=== PATIENT | male | born 1950 | race Asian ===

== ENCOUNTER 2017-03-15 05:56 | Inpatient (IN) | payer OTHER ==
[~2017-03-15] VITALS: Ht 162.6 cm; Wt 68.7 kg
[2017-03-15 06:24] VITALS: BP 130/94
--- NOTE | 2017-03-15 11:15 | NUR ---
PT ON THE FLOOR, ACCOMPANIED BY KATHARINE FROM OR. VS STABLE PT AWAKE A/O X4 ABLE TO MAKE NEEDS KNOWN. TEMPERATURE AND SENSATION EQUAL BILATERAL TO BOTH LOWER EXTREMITIES, PT ABLE TO WIGGLE TOES TO BOTH FEET. PT ORIENTED TO ROOM CALL LIGHT IN REACH, WILL CONTINUE TO MONITOR.
[2017-03-15 11:42] VITALS: BP 146/90
[2017-03-15 13:36] VITALS: BP 113/70
--- NOTE | 2017-03-15 13:42 | NUR ---
PT RESTING IN BED NO SIGNS OF DISTRESS ABLE TO MAKE NEEDS KNOWN. CALL LIGHT IN REACH WILL CONTINUE TO MONITOR.
--- NOTE | 2017-03-15 15:22 | NUR ---
P.T. NOTES ORDERED OHT APPLICATION; OHT APPLIED, EXPLAINED SAFE USE OF OHT, CALL QUARLES, PHONE, TABLE IN REACH; BED ALARM ON; RECEIVED P.T. EVAL ORDER FOR 03/16/17; FOLLOW UP TOMORROW. OHT SET UP
--- NOTE | 2017-03-15 16:27 | NUR ---
PT RESTIGN IN BED NO SIGNS OF DISTRESS, EVEN UNLABORED RESPIRATIONS. CALL LIGHT IN REACH.
[2017-03-15 17:05] VITALS: BP 94/51
--- NOTE | 2017-03-15 18:18 | NUR ---
PT EATING DINNER IN BED NO SIGNS OF DISTRESS CALL LIGHT IN REACH, PT DENIES PAIN AT THIS TIME. WILL REASSESS.
--- NOTE | 2017-03-15 20:04 | NUR ---
REC'D PT FROM [facility]. AAOX4. LAYING IN BED COMFORTABLY. DENIES PAIN. LUNG SOUNDS ARE CTA, NO SOB, BREATH SOUNDS ARE E/U. ABD IS SOFT AND ROUND, ACTIVE X4. L FIBERGLASS SPINT AND STOCKNETTE NOTED. BILATERAL LOWER EXTREMITIES ARE PALPABLE. NO R EDEMA NOTED. BED IN LOWEST POSITION. CALL LIGHT WITHIN REACH. WILL CONTINUE TO MONITOR.
--- NOTE | 2017-03-15 21:34 | NUR ---
PT COMPLAINED OF 8/10 ON THE PAIN SCALE. PT GIVEN PRN NORCO. WILL CONTINUE TO MONITOR.
[2017-03-15 21:37] VITALS: BP 100/62
--- NOTE | 2017-03-16 05:02 | NUR ---
PT SLEPT THROUGHOUT THE SHIFT. NO SOB, NO JOSE/D, NO SIGNS OF DISTRESS NOTED. DENIES PAIN AT THIS TIME. WILL CONTINUE TO MONITOR.
[2017-03-16 05:48] VITALS: BP 105/56
--- NOTE | 2017-03-16 07:20 | NUR ---
ENDORSE ALL CONTINUITY CARE TO [facility] GRAHAM.
--- NOTE | 2017-03-16 07:45 | NUR ---
PT AWAKE ALERT AD ORIENTED X4, ABLE TO MAKE NEEDS KNOWWN. PT DENIES CP OR SOB. LUNGS CTA, PT RESTING COMFORTBALE ON RA. BOWEL TONES ACTIVE. SENSATION AND COLORATION EQUAL TO BILATERAL EXTREMITIES. TRAPEEZE IN PLACE. URINAL AT BEDSIDE. CALL LIGHT IN REACH WILL CONTINUE TO MONITOR.
[2017-03-16 09:30] VITALS: BP 139/84
--- NOTE | 2017-03-16 10:25 | NUR ---
PT RSTING IN BED, NO SIGNS OF DISTRESS PAIN AT A TOERABLE LEVEL. WILL CONTINUE TO MONITOR.
--- NOTE | 2017-03-16 11:47 | NUR ---
P.T. NOTES Pt CLEARED PER CHARGE NURSE FOR PT EVAL.PATIENT LIVES AT HOME W/ AND REPORTS PRIOR IND WITH ADLs, STATES HE HAS BEEN USING CRUTCHES SINCE L ANKLE FX FEW MONTHS AGO, ALTHOUGH Pt ADMITS TO NON-COMPLIANCE AT TIMES. Pt HAD A FALL AT WORK WHICH LED TO L ANKLE FRACTURE. HE IS NOW POST OP L ANKLE ORIF ON 03/15/17 W/NWB PRECAUTIONS TO L LE. S: Pt PRESENTS AWAKE, ALERT AND AGREEABLE FOR PT EVAL. AT BEDSIDE. Pt REPORTS 3/10 L ANKLE PAIN, BUT WAS PREMEDICATED W/PAIN MEDS PER RN THIS MORNING. STATES THAT PAIN IS "NOT TOO BAD." COOPERATIVE W/CARE. O: PLEASE SEE EVAL FOR DETAILS. Pt MOSTLY REQUIRES SBA W/BED MOBILITY, MIN ASSIST W/TRANSFERS AND MIN A FOR GT W/CRUTCHES FOR 30 FT, CGA W/GT WITH FWW FOR 40 FT. Pt EDU ON CRUTCH TRAINING AND FWW BUT DEMO'S INCREASED STABILITY W/FWW USE. Pt AND EDU ON SAFETY, FALL PREVENTION, WELL Pt NWB L LE PRECAUTIONS W/GOOD UNDERSTANDING EXPRESSED. Pt SAFELY ASSISTED BTB WITH ALL LINES INTACT, CALL LIGHT AND TRAY IN REACH, HOB ELEVATED. OHT IN PLACE. COOPERATIVE AND APPRECIATIVE OF PT CARE. SUPPORTIVE SPOUSE. L LE ELEVATED. VS ASSESSMENT PRE PT:BP 124/69, HR 73BPM, SP02 96% ON RA. A: Pt TOLERATED PT WELL. FALL RISK D/T DECLINE IN FUNCTION AND LLE NWB PRECAUTIONS. DEMO'S GOOD COMPLIANCE W/L LE NWB PRECAUTIONS. LOB X 3 DURING GT W/CRUTCHES W/THERAPIST ASSIST TO CORRECT. NO LOB NOTED W/FWW USE AND DEMO'S MUCH INCREASED GAIT STABILTY W/FWW USE. WILL BENEFIT FROM FWW FOR FALL PREVENTION AND GAIT BALANCE WELL FROM SHOWER CHAIR UPON RETURN HOME. WILL BENEFIT FROM PT DURING ACUTE STAY AND POSSIBLE HHPT POST ACUTE STAY. P: POC REVIEWED W/IT SALES REPRESENTATIVE. PLEASE SEE PATIENT ONCE DAILY, 6X/WK, 1 WEEK. EVAL 35' [phone] (3)PVE FOR SBA, SAFETY, FOLLOW W/IV POLE DURING GT. [id number] TUG 13 SEC Pt PROVIDED W/TRANSFER TRAINING AND USED COMMODE IN RESTROOM W/MIN ASSIST FOR SAFE SIT<>STAND TRANSFERS AND VC FOR PROPER USE OF GRAB BAR. Pt PERFORMED SELF PERICARE AND WAS SAFELY ASSISTED TO BED W/CALL LIGHT IN HAND AND LINES INTACT. 1 TA 10' [phone]
--- NOTE | 2017-03-16 14:07 | NUR ---
PT RESTING IN BED STAES PAIN IS AT A 6/10, MEDIACTED ACCORDING TO MAR. WILL CONTINUE TO MONITOR.
--- NOTE | 2017-03-16 15:44 | NUR ---
PT NOTES PM TIME: [id number] TE10',TA8',GT20' S:CHART REVIEWED AND CLEARED FOR PT BY RN. PATIENT IN SUPINE RESTING, EXPRESSING 3-4/10 L ANKLE PAIN (PREMEDICATED). PATIENT EAGER AND AGREEABLE TO PARTICIPATE IN THERAPY. L ANKLE SOFT CAST IN PLACE. O:BED: SBA/SUP SUPINE<->SIT VIA LONG SIT PIVOT TRANSFER WITH VC'S FOR PACING. NO DIZZINESS EXPRESSED. TRANSFER: SBA/CGA SIT<->STAND WITH FWW AND L LE NWB OBSERVED. NO DIZZINESS EXPRESSED. GAIT: CGA/SBA FWW 110'x2 WITH REMINDERS ON PACING AND POSTURAL AWARENESS. NO LOB, SOB OR INCREASED PAIN EXPRESSED. ASSISTED INTO RESTROOM FOR SUCCESSFUL URINATION. OVERALL STEADY GLADYS WITH FWW. TE: L TOE AROM FOR IMPROVED CIRCULATION, R LE KNEE EXT/FLEX WITH ANKLE ROM, GLUTEAL SETS, SHOULDERS SHRUGS/CIRCLES, SCAPULAR RETRACTION/PROTRACTION WITH EMPHASIS ON POSTURAL AWARENESS. (ALL TOLERATED). PATIENT EDUCATED WITH ENERGY CONSERVATION TECH, HEP, PACING AND WB STATUS WITH GOOD FOLLOW THRU. PATIENT RETURNED SAFELY AND MADE COMFORTABLE IN BED WITH ALL LIENS INTACT, TRAY AND CALL LIGHT IN REACH. PATIENT COOPERATIVE AND APPRECIATIVE OF PT CARE, RN MADE AWARE. P:CONT WITH POC, PROGRESS DISCUSSED WITH PRIMARY PT.
--- NOTE | 2017-03-16 16:23 | NUR ---
PT RESTING IN BED NO SIGNS OF DISTRESS CALL LIGHT IN REACH WILL CONTINUE TO MONITOR.
[2017-03-16 16:54] VITALS: BP 116/70
--- NOTE | 2017-03-16 18:05 | NUR ---
SOCIAL SERVICE NOTE/LATE ENTRY- RECEIVED ORDER EARLIER TODAY FOR A WALKER. I CONTACTED THE HOSPITAL INSURANCE VERIFIERS AND AM WAITING FOR AN INSURANCE CONTACT TO MAKE THIS ARRANGEMENT. CONTINUE TO FOLLOW.
--- NOTE | 2017-03-16 18:40 | NUR ---
PT RESTING IN BED NO C/O PAIN. EVEN UNLABORED RESPIRATIONS, NO SIGNS OF DISTRESS CALL LIGHT IN REACH, PT ABLE TO WIGGLE TOES COLOR ADN SENATION EQUAL TO BILATERAL TOES.
[2017-03-16] MEDS ORDERED: LISINOPRIL20 MG GT (20:00)
[2017-03-16] MEDS ORDERED: ZESTRIL20 MG PO (20:02)
--- NOTE | 2017-03-16 20:10 | NUR ---
REC'D PT FROM [facility]. AAOX4. DENIES PAIN. NO SIGNIFICANT CHANGES NOTED. NO RESP DISTRESS NOTED. LUNG SOUNDS ARE CTA. BREATH SOUNDS ARE E/U. ABD IS SOFT AND ROUND, ACTIVE X4. L FIBERGLASS SPLINT AND STOCKINETTE NOTED. BILATERAL LOWER EXTREMITIES ARE PALPABLE. PT ABLE TO MOVE BLE TOES. NO EDEMA NOTED. BED IN LOWEST POSITION. CALL LIGHT WITHIN REACH. WILL CONTINUE TO MONITOR.
[2017-03-16 21:22] LABS: BASOPHIL % 0.5 % (0-2); PLATELET COUNT 222 x10^3mcL (130-400); RED CELL DISTRIBUTION WIDTH 13.5 % (11.5-14.5)
[2017-03-16 21:40] LABS: ALKALINE PHOSPHATASE 72 U/L (46-116); ALT/SGPT 25 U/L (16-63); AMYLASE 68 U/L (25-115); AST/SGOT 16 U/L (15-37); BILIRUBIN TOTAL 0.42 mg/dL (0.20-1.00); CALCIUM 8.1 mg/dL (8.5-10.1); CARBON DIOXIDE 32.2 mmol/L (21-32); CHLORIDE SERUM 106 mmol/L (98-107); CHOLESTEROL 189 mg/dL (<200); CHOLESTEROL/HDL RATIO 3.7; GFR1 > 60 mL/min; GLUCOSE SERUM 119 mg/dL (74-106); HDL CHOLESTEROL 51 mg/dL (40-60); LIPASE 222 IU/L (73-393); POTASSIUM SERUM 4.6 mmol/L (3.5-5.1); SODIUM SERUM 141 mmol/L (136-145); TOTAL PROTEIN, SERUM 6.3 g/dL (6.4-8.2); TRIGLYCERIDES 163 mg/dL (<150)
[2017-03-16 21:43] LABS: ALBUMIN 2.9 g/dL (3.4-5.0); T3 TOTAL 1.15 ng/mL
[2017-03-16 21:44] LABS: FREE T4 1.41 ng/dL (0.76-1.46); FREE THYROXINE INDEX 3.8 ug/dL (1.4-4.5); T4(THYROXINE) 10.2 ug/dL (4.7-13.3)
[2017-03-17 00:06] LABS: microscopic required? YES; urine erythrocyte 2+ (NEGATIVE)
[2017-03-17 00:27] LABS: AMPHETAMINE QUAL UR NONE DETECTED (NEG <=1000)
--- NOTE | 2017-03-17 04:27 | NUR ---
PT IS ASLEEP AND RESTING WELL. NO SIGNS OF DISTRESS NOTED. IV INFUSING WELL. WILL CONTINUE TO MONITOR.
[2017-03-17 05:53] VITALS: BP 128/97
--- NOTE | 2017-03-17 07:00 | NUR ---
RECEIVED REPORT FROM NOC CLARK LAIRD AT THIS TIME. PATIENT IS RESTING IN BED, AWAKE, ALERT AND O X 4. ON ROOM AIR, NO DISTRESS NOTED, DENIES SOB, LUNGS CTA. IV TO LFA IN PLACE, INFUSING NS AT 50ML/HR. BOWEL SOUNDS ACTIVE. DENIES URINARY DISCOMFORT/PAIN. SKIN WARM AND DRY. TRAPEZE IN PLACE. SCD TO RLE IN PLACE. LLE ELEVATED ON 2 PILLOWS, DRESSING CDI, CAN MOVE TOES, CAP REFILL LESS THAN 3 SECONDS, SENSATION WNL. INSTRUCTED ON USE OF CALL LIGHT. WILL CONTINUE TO MONITOR.
--- NOTE | 2017-03-17 08:23 | NUR ---
ROUNDS MADE AT THIS TIME. DR. HASTINGS, RESIDENT TEAM, COURT RECORDING MONITOR JIGAR, AND PRIMARY RN AT THE BEDSIDE. PLAN OF CARE IS DISCUSSED. QUESTIONS AND CONCERNS ADDRESSED. WILL CONTINUE TO MONITOR.
[2017-03-17 09:33] VITALS: BP 141/93
--- NOTE | 2017-03-17 11:00 | NUR ---
NOTIFIED DR. BARBOSA BP 174/106, TAKEN BY PHYSICAL THERAPY. PER PATIENT HE TAKES LISINOPRIL 20MG PO TWICE PER DAY. DR. BARBOSA GAVE TELEPHONE ORDER TO RESUME LISINOPRIL AT THIS TIME.
--- NOTE | 2017-03-17 12:27 | NUR ---
PT NOTES TIME [id number] S: CLEARED BY RN FOR P.T. TX. PATIENT IS AWAKE & ALERT IN A SEMI COVARRUBIAS POSITION IN BED. AGREEABLE TO P.T. TX. C/O L ANKLE PAIN 2/10 @ REST & 3/10 AFTER TX. RN IS AWARE. O: VS AT REST BP L UE 138/100 & R UE 185/95, HR 101 BPM. BED MOBILITY: SUPINE<>SIT INDEPENDENT. TRANSFER: SIT>STAND W/ CRUTCHES MIN/CGA. STAND>SIT W/ CRUTCHES CGA. PATIENT HAD 1 LOB DURING A SIT>STAND TRANSFER W/ CRUTCHES. PATIENT REQUIRED MIN/CGA TO CORRECT BALANCE. REQUIRES VC FOR STEP BY STEP SEQUENCE W/ SIT<>STAND TRANSFERS FOR CRUTCHES. GAIT: 60FT W/ CRUCTCHES CGA. PATIENT HAS A DECREASE GAIT VELOCITY. AT TIMES PATIENT DEMO'S A STEP THROUGH GAIT PATTERN. PATIENT HAD 1 LOB, BUT ABLE TO RECOVER. L LE NWB. VC GIVEN W/ PROPER GAIT SEQUENCE. EDUCATED PATIENT ON HEP FOR STRENGTHENING, L LE NWB, & SAFETY FOR FALL PREVENTION W/ G UNDERSTANDING. COOPERATIVE & APPRECIATIVE OF CARE. INSTRUCTED ON THER EX FOR BILAT LE/UE WILFREDO. PATIENT IS SAFELY & COMFORTABLY IN A SEMI COVARRUBIAS POSITION IN BED W/ CALL BUTTON & TABLE IN REACH. VS AFTER TX BP 174/106, HR 116 BPM, SPO2 ON RA 98%. RN NOTIFIED P: DISCUSSED W/ PRIMARY PHYSICAL THERAPIST GT15',TA8',PVE((2) ADDITIONAL STAFF SBA FOR SAFETY)
--- NOTE | 2017-03-17 14:51 | NUR ---
PT NOTES P.M. TIME 6313-7439 S: CLEARED BY RN FOR P.T. TX. PATIENT IS AWAKE & ALERT IN A SEMI COVARRUBIAS POSITION IN BED. AGREEABLE TO P.T. TX. NO C/O PAIN OR DIZZINESS AT THIS TIME. O: BED MOBILITY: SUPINE<>SIT INDEPENDENT. TRANSFER: SIT<>STAND W/ FWW SBA/CGA. VC GIVEN W/ PROPER HAND/FOOT PLACEMENT FOR SIT<>STAND TRANSFER & MAINTAIN NWB ON L LE DURING SEQUENCE FOR A SAFER TRANSFER. GAIT: 120FT W/ FWW SBA/CGA. PATIENT DEMO'S DECREASE GAIT VELOCITY. L LE NWB & PATIENT IS COMPLIANT W/ WB STATUS. 1 STANDING REST PERIOD. PATIENT DEMO'S INCREASE STABILITY & BALANCE DURING GAIT. PATIENT HAS INCREASED GAIT DISTANCE. NO C/O PAIN. EDUCATED PATIENT ON SAFETY FOR FALL PREVENTION, L LE NWB STATUS, & PROPER GAIT SEQUENCE W/ GOOD UNDERSTANDING. COOPERATIVE & APPRECIATIVE OF CARE. INSTRUCTED PATIENT ON HEP FOR BILAT LE WILFREDO. PATIENT IS SAFELY & COMFORTABLY IN A SEMI COVARRUBIAS POSITION IN BED W/ CALL BUTTON & TABLE IN REACH. RN NOTIFIED. P: DISCUSSED W/ PRIMARY PHYSICAL THERAPIST GT15',TA8'
--- NOTE | 2017-03-17 15:00 | NUR ---
IN TO SEE PATIENT AT THIS TIME. PATIENT IS RESTING IN BED NO DISTRESS NOTED. PATIENT WORKED WITH PHYSICAL THERAPY AND IS HAVING PAIN TO LLE. I WILL MEDICATE ORDRED. IS AT THE BEDSIDE. WILL CONTINUE TO MONITOR.
[2017-03-17] MEDS ORDERED: FLO4 PO (16:00)
[2017-03-17 16:05] VITALS: BP 157/92
[2017-03-17 16:08] VITALS: BP 157/92
--- NOTE | 2017-03-17 16:33 | NUR ---
DISCHARGE INSTRUCTIONS GIVEN TO PATIENT AND AT THIS TIME. PATIENT VERBALIZES UNDERSTANDING. IV REMOVED, CATH INTACT. ID BANDS REMOVED.
== END 2017-03-17 16:45 | disposition home or self-care (01) | DRG 492 ==
LOC: MU 05:56 → DS 05:56 → OR 07:30 → DS 07:30 → MU 09:28 → DS 03-16 14:00 → MU 03-16 14:10
PROVIDERS: Family Medicine; ADMIT Neuromusculoskeletal Medicine, Sports Medicine
PROC: 0QSH04Z Reposition Left Tibia with Internal Fixation Device, Open Approach (ICD-10-PCS; principal; 2017-03-16)
DX: S82.52XA Displaced fracture of medial malleolus of left tibia, initial encounter for closed fracture (principal); N17.0 Acute kidney failure with tubular necrosis; E44.0 Moderate protein-calorie malnutrition; W18.39XA Other fall on same level, initial encounter; Y93.89 Activity, other specified; Y92.018 Other place in single-family (private) house as the place of occurrence of the external cause; N40.1 Benign prostatic hyperplasia with lower urinary tract symptoms; R33.8 Other retention of urine; R31.29 Other microscopic hematuria; E83.51 Hypocalcemia; D64.9 Anemia, unspecified; Z68.26 Body mass index [BMI] 26.0-26.9, adult
CPT/HCPCS: 80307; 83880; 84439; 97110-GP; 97116-GP; 97530-GP; C1713; J0690; J1170; J2250; J2270; J3010; J3490; J7030; J7050; Q0092